=== PATIENT | female | born 1965 | race Caucasian/White ===

== ENCOUNTER 2016-05-07 23:25 | Emergency (ER) | payer SELFPAY ==
[~2016-05-07] VITALS: Ht 162.6 cm; Wt 63.5 kg
[2016-05-07] MEDS ORDERED: ONDANSETRON PF 4 MG/2 ML VIAL. ONE (23:42)
[2016-05-07] MEDS ORDERED: IV NORMAL SALINE 1000ML BAG 1,000 ML IV ONE (23:45)
[2016-05-07] MEDS ORDERED: ONDANSETRON PF 4 MG/2 ML VIAL. IV ONE (23:45)
[2016-05-07 23:50] LABS: BASO # 0.1 x10^3/uL (0.0-0.2); BASO % 1 % (0-3); EOS % 1 % (0-3); HEMATOCRIT 35.2 % (36.0-47.0); LYMPH # 3.3 x10^3/uL (1.0-4.8); LYMPH % 45 % (24-48); MEAN CORPUSCULAR HEMOGLOBIN 35 pg (25-35); MEAN CORPUSCULAR HGB CONC 34 g/dL (31-37); MEAN CORPUSCULAR VOLUME 103 fL (79-100); MONO % 6 % (0-9); NEUT % 47 % (31-73); PLATELET COUNT 227 x10^3/uL (140-400); RED CELL DISTRIBUTION WIDTH 16.2 % (11.5-14.5); WHITE BLOOD COUNT 7.4 x10^3/uL (4.0-11.0)
[2016-05-07 23:57] LABS: CALCIUM 9.3 mg/dL (8.5-10.1); CREATININE 1.2 mg/dL (0.6-1.0); GFR 47.2; POTASSIUM 3.8 mmol/L (3.5-5.1)
[2016-05-08] MEDS ORDERED: IV NORMAL SALINE 1000ML BAG 1,000 ML IV ONE (00:30)
[2016-05-08 02:00] VITALS: BP 121/81
--- NOTE | 2016-05-08 02:09 | PHYS DOC ---
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 She states she had not eaten or drank much throughout the day and had only a bag of pretzels and cranberry juice. She believes her last meal was earlier that morning which was over 12 hours prior. Blood sugars in the 90s. She states she was working and started to see spots in her vision feel like she could pass out. Blood pressure taken and was low. She was brought down to the ER for further evaluation and treatment. She has been evaluated recently by her electric well logging operator and is in the process of getting a workup for her symptoms. She states she has history of elevated heart rate and has worn a Holter monitor in the past. Patient is set to receive an echocardiogram in the next several weeks. She denies any chest pain or shortness breath. She denies any abdominal pain. Review of Systems Review of Systems Constitutional: Denies fever or chills [] Eyes: Denies change in visual acuity, redness, or eye pain [] HENT: Denies nasal congestion or sore throat [] Respiratory: Denies cough or shortness of breath [] Cardiovascular: No additional information not addressed in HPI [] GI: Denies abdominal pain, nausea, vomiting, bloody stools or diarrhea [] : Denies dysuria or hematuria [] Musculoskeletal: Denies back pain or joint pain [] Integument: Denies rash or skin lesions [] Neurologic: Denies headache, focal weakness or sensory changes [] Endocrine: Denies polyuria or polydipsia [] Current Medications Current Medications Current Medications Medications (Trade) Dose Ordered Sig/Abilio Start Time Stop Time Status Last Admin Dose Admin Ondansetron HCl (Zofran) 4 mg 1X ONCE 05/07/16 23:45 05/07/16 23:57 DC 05/07/16 23:45 4 MG Ondansetron HCl 4 mg 4 mg STK-MED ONCE 05/07/16 23:42 05/07/16 23:43 DC Sodium Chloride (Iv Sodium Chloride 0.9% 1000ml Bag) 1,000 ml @ 1,000 mls/hr 1X ONCE 05/08/16 00:30 05/08/16 01:29 DC 05/08/16 00:52 1,000 MLS/HR Allergies Allergies Allergies Coded Allergies Type Severity Reaction Last Updated Verified No Known Drug Allergies 05/07/16 No Physical Exam Physical Exam Constitutional: Well developed, well nourished, no acute distress, non-toxic appearance. [] HENT: Normocephalic, atraumatic, bilateral external ears normal, oropharynx moist, no oral exudates, nose normal. [] Eyes: PERRLA, EOMI, conjunctiva normal, no discharge. [] Neck: Normal range of motion, no tenderness, supple, no stridor. [] Cardiovascular:Heart rate regular rhythm, no murmur [] Lungs & Thorax: Bilateral breath sounds clear to auscultation [] Abdomen: Bowel sounds normal, soft, no tenderness, no masses, no pulsatile masses. [] Skin: Warm, dry, no erythema, no rash. [] Back: No tenderness, no CVA tenderness. [] Extremities: No tenderness, no cyanosis, no clubbing, ROM intact, no edema. [] Neurologic: Alert and oriented X 3, normal motor function, normal sensory function, no focal deficits noted. [] Psychologic: Affect normal, judgement normal, mood normal. [] Current Patient Data Vital Signs Vital Signs Date Time Temp Pulse Resp B/P Pulse Ox O2 Delivery O2 Flow Rate FiO2 05/08/16 02:00 97 121/81 97 Room Air 05/07/16 23:30 98.0 16 98.0 Lab Values Laboratory Tests Test 05/07/16 23:35 05/07/16 23:50 White Blood Count 7.4x10^3/uL (4.0-11.0) Red Blood Count 3.40x10^6/uL (3.50-5.40) L Hemoglobin 12.0g/dL (12.0-15.5) Hematocrit 35.2% (36.0-47.0) L Mean Corpuscular Volume 103fL (79-100) H Mean Corpuscular Hemoglobin 35pg (25-35) Mean Corpuscular Hemoglobin Concent 34g/dL (31-37) Red Cell Distribution Width 16.2% (11.5-14.5) H Platelet Count 227x10^3/uL (140-400) Neutrophils (%) (Auto) 47% (31-73) Lymphocytes (%) (Auto) 45% (24-48) Monocytes (%) (Auto) 6% (0-9) Eosinophils (%) (Auto) 1% (0-3) Basophils (%) (Auto) 1% (0-3) Neutrophils # (Auto) 3.5x10^3uL (1.8-7.7) Lymphocytes # (Auto) 3.3x10^3/uL (1.0-4.8) Monocytes # (Auto) 0.5x10^3/uL (0.0-1.1) Eosinophils # (Auto) 0.0x10^3/uL (0.0-0.7) Basophils # (Auto) 0.1x10^3/uL (0.0-0.2) Sodium Level 132mmol/L (136-145) L Potassium Level 3.8mmol/L (3.5-5.1) Chloride Level 92mmol/L (98-107) L Carbon Dioxide Level 25mmol/L (21-32) Anion Gap 15 (6-14) H Blood Urea Nitrogen 10mg/dL (7-20) Creatinine 1.2mg/dL (0.6-1.0) H Estimated GFR (Cockcroft-Gault) 47.2 Glucose Level 112mg/dL (70-99) H Calcium Level 9.3mg/dL (8.5-10.1) Troponin I Quantitative < 0.017ng/mL (0.000-0.055) Glucose (Fingerstick) 98mg/dL (70-99) Laboratory Tests 05/07/16 23:35 Laboratory Tests 05/07/16 23:35 EKG EKG EKG as interpreted by me shows a sinus tachycardia with a rate of 102 bpm. There are no acute ST findings seen on this EKG. Radiology/Procedures Radiology/Procedures [] Course & Med Decision Making Course & Med Decision Making Pertinent Labs and Imaging studies reviewed. (See chart for details) 60-year-old female with near syncopal symptoms had a laboratory workup that was essentially unremarkable. She was given 2 L of IV normal saline and observed in the department for multiple hours. Ultimately she was ambulated with success around the department. She had multiple episodes of tachycardia while in the department and with ambulation. She states this is an ongoing issue that she is following closely with her electric well logging operator. Patient was refusing head CT and also refusing admission. I discussed with her at length that there is worse with this but she is adamant about going home and following up with her primary care doctor and so I will discharge her at this time. She states she will call in the morning to follow closely and continue to drink plenty of fluids and rest and return if she develops any worsening of her presenting symptoms. Dragon Disclaimer Dragon Disclaimer This electronic medical record was generated, in whole or in part, using a voice recognition dictation system. Departure Departure Impression: Primary Impression: Near syncope Disposition: 01 HOME, SELF-CARE Admitting Physician: Other Condition: STABLE Referrals: NO PCP (PCP) Patient Instructions: Near-Syncope, [id number] Additional Instructions: Please follow up closely with your primary doctor in the next 2-3 days for your symptoms. Continue to drink plenty of fluids and rest. Return to the ER if you develop any worsening of your symptoms. MATI TALAMANTES DO May 08, 2016 02:09
--- NOTE | 2016-05-08 06:13 | EKG ---
[facility] [address] [place] [address] Test Date: 2016-05-07 Test Time: 23:36:27 Pat Name: VENKATA GONZALEZ Department: Room: Gender: F Preschool Assistant: : [id number] Requested By: MATI TALAMANTES Order Number: [id number] Reading MD: Chris Roger Measurements Intervals Ada Rate: 102 P: 42 DE: 148 QRS: 43 QRSD: 80 T: 28 QT: 314 QTc: 413 Interpretive Statements SINUS TACHYCARDIA OTHERWISE NORMAL ECG RI6.01 Unconfirmed report No previous ECG available for comparison Electronically Signed On 05-13-2016 13:32:27 SCALEMAN by Chris Roger
== END 2016-05-08 02:20 | disposition home or self-care (01) ==
LOC: ER 23:25
DX: R55 Syncope and collapse (principal); R00.0 Tachycardia, unspecified; I10 Essential (primary) hypertension
CPT/HCPCS: 36415; 80048; 82947; 84484; 85027; 93005; 96361; 96374; 99285; J2405; J7030